=== PATIENT | female | born 1980 | race Caucasian/White ===

== ENCOUNTER 2017-07-22 08:11 | Emergency (ER) | payer BC, OTHER ==
[~2017-07-22 08:11] MED LIST: BCPILLS PO; CYAN1SUB12 PO; FOLI1TAB7 PO; LORA10TA44 PO; PANT1TAB48 PO; PRENTAB26 PO; PRVHFAIN INH; PSEU30TA64 PO; ZNTT/150 PO
[2017-07-22 08:12] VITALS: TEMP 36.9; Ht 177.8 cm
[2017-07-22] MEDS ORDERED: KETOROLAC TROMETHAMINE 60 MG/2 ML VIAL IM STA (08:24)
[2017-07-22] MEDS ORDERED: HYDROmorphone INJ 1 MG/ML SYR IM STA (08:24)
[2017-07-22] MEDS ORDERED: LIDODERM (LIDOCAINE) PATCH 5% TD STA (08:24)
[2017-07-22] MEDS ORDERED: CYCLOBENZAPRINE HCL 10 MG TAB PO STA (08:24)
[2017-07-22] MEDS ORDERED: ONDANSETRON 4MG OD TAB PO STA (08:24)
[2017-07-22] MEDS ORDERED: NAPR-1169 PO (08:43)
[2017-07-22] MEDS ORDERED: MISCCAP80 PO (08:43)
[2017-07-22] MEDS ORDERED: ESCI10TA17 PO (08:43)
--- NOTE | 2017-07-22 09:08 | DIAGNOSTIC IMAGING REPORT ---
PELVIS 1 OR 2 VIEW ROUTINE CLINICAL HISTORY: Pelvic pain COMPARISON STUDY: No previous studies for comparison. FINDINGS: No fractures or dislocations are visualized. The joint space of each hip appears well-preserved for age. There are no erosive or destructive changes. IMPRESSION: Unremarkable bony pelvis Electronically signed by: Amaury Lo M.D. 07/22/2017 9:06 AM Dictated Date/Time: 07/22/2017 9:05 AM
--- NOTE | 2017-07-22 09:08 | DIAGNOSTIC IMAGING REPORT ---
L-SPINE MIN 4 VIEWS ROUTINE CLINICAL HISTORY: Lumbar spine pain COMPARISON STUDY: No previous studies for comparison. FINDINGS: No fractures or subluxations are visualized. The disc space heights appear well-preserved. There are no erosive or destructive changes. IMPRESSION: Unremarkable conventional radiographic evaluation of the lumbar spine. Electronically signed by: Amaury Lo M.D. 07/22/2017 9:07 AM Dictated Date/Time: 07/22/2017 9:06 AM
[2017-07-22] MEDS ORDERED: FLEXERIL HOME PACK 10 MG VIAL PO STA (09:25)
[2017-07-22] MEDS ORDERED: OXYCODONE IR HOME PACK PO STA (09:25)
[2017-07-22] MEDS ORDERED: CYCL10TA6 PO (09:30)
[2017-07-22] MEDS ORDERED: OXYC1TAB3 PO (09:30)
[2017-07-22] MEDS ORDERED: NF656 TD (09:30)
[2017-07-22 09:33] VITALS: BP 120/72; PULSE 71; O2SAT 96
--- NOTE | 2017-07-22 14:26 | EMERGENCY ROOM VISIT NOTE ---
History Report prepared by [employer]: Sanam Hernandez Under the Supervision of: Dr. Robert May M.D. First contact with patient: 08:17 Chief Complaint: BACK PAIN Stated Complaint: BACK PAIN History of Present Illness The patient is a 36 year old female who presents to the Emergency Room with complaints of worsening back pain starting last night. The patient states that she has had back issues for years and has been able to manage it with the chiropractor. She reports that now the pain is radiating down her right leg and making it weak. The patient notes that she took 2 Naproxen 2 hours ago and had 2 Tramadol last night with no relief. She denies losing control of her bowel or bladder, seeing an orthopedic surgeon, being diabetic, and the chance of being . She notes that she has a chiropractor appointment scheduled in four days. Source of History: patient Onset: last night Position: back Quality: other (radiating) Timing: worsening Associated Symptoms: + weakness Note: The patient denies losing control of her bowel or bladder. Review of Systems See HPI for pertinent positives & negatives. A total of 10 systems reviewed and were otherwise negative. Past Medical & Surgical Medical Problems: (1) Back pain Family History No pertinent family history Social History Smoking Status: Never Smoker Marital Status: Housing Status: lives with family Occupation Status: employed Current/Historical Medications Scheduled Albuterol (Ventolin Hfa), 2 PUFFS INH TID Cyanocobalamin (Vitamin B-12), PO DAILY Cyclobenzaprine Hcl (Flexeril), 10 MG PO TID Escitalopram (Lexapro), 0.5 TAB PO DAILY Folic Acid (Folvite), 1 MG PO DAILY Lidocaine (Lidoderm Patch 5%), 1 PATCH TD DAILY Loratadine (Allergy), PO DAILY Naproxen (Naprosyn), 500 MG PO BID Pantoprazole (Protonix), 40 MG PO DAILY Probiotic Product (Probiotic), 1 CAP PO DAILY Scheduled PRN Oxycodone Immediate Rel Tab (Roxicodone Ir), 1-2 TAB PO Q4H PRN for Severe Pain Allergies Coded Allergies: Lactose (Unverified Allergy, Unknown, ABDOMINAL PAIN, 07/18/14) Phenazopyridine (Unverified Allergy, Unknown, UNKNOWN, 07/18/14) Physical Exam Vital Signs Date Time Temp Pulse Resp B/P (MAP) Pulse Ox O2 Delivery O2 Flow Rate FiO2 07/22/17 09:33 71 16 120/72 96 Room Air 07/22/17 08:12 36.9 96 20 128/78 98 Room Air Physical Exam GENERAL: Patient is a healthy-appearing well-nourished HEAD: Normocephalic atraumatic EYES: Ocular movements intact pupils equal and react to light OROPHARYNX mucous membranes are moist no exudates present no erythema or edema present NECK: Supple no nuchal rigidity CHEST: Good equal expansion LUNGS: Clear and equal to auscultation CARDIAC: Normal S1 and S2 ABDOMEN: Soft nontender no guarding BACK: No CVA tenderness. Point tenderness to the right SI joint. EXTREMITIES: No pain upon palpation normal muscle strength in all groups no clubbing cyanosis or edema NEURO: Patient is following commands and answering questions appropriately. Alert and oriented x3 Cranial Nerves 2-12 grossly intact. Able to walk on her tip toes and heels. No loss of bowel or bladder control. No saddle anesthesia on exam. Medical Decision & Procedures ER Provider Diagnostic Interpretation: Radiology results as stated below per my review and radiologist interpretation: PELVIS 1 OR 2 VIEW ROUTINE CLINICAL HISTORY: Pelvic pain COMPARISON STUDY: No previous studies for comparison. FINDINGS: No fractures or dislocations are visualized. The joint space of each hip appears well-preserved for age. There are no erosive or destructive changes. IMPRESSION: Unremarkable bony pelvis Electronically signed by: Amaury Lo M.D. 07/22/2017 9:06 AM Dictated Date/Time: 07/22/2017 9:05 AM L-SPINE MIN 4 VIEWS ROUTINE CLINICAL HISTORY: Lumbar spine pain COMPARISON STUDY: No previous studies for comparison. FINDINGS: No fractures or subluxations are visualized. The disc space heights appear well-preserved. There are no erosive or destructive changes. IMPRESSION: Unremarkable conventional radiographic evaluation of the lumbar spine. Electronically signed by: Amaury Lo M.D. 07/22/2017 9:07 AM Dictated Date/Time: 07/22/2017 9:06 AM Medications Administered Medications (Trade) Dose Ordered Sig/Evans Route Start Time Stop Time Status Last Admin Dose Admin Ketorolac Tromethamine (Toradol Inj) 60 mg NOW STAT IM 07/22/17 08:24 07/22/17 08:26 DC 07/22/17 08:35 60 MG Lidocaine (Lidoderm Patch 5%) 1 patch NOW STAT TD 07/22/17 08:24 07/22/17 08:26 DC 07/22/17 08:36 1 PATCH Hydromorphone HCl (Dilaudid Inj) 1 mg NOW STAT IM 07/22/17 08:24 07/22/17 08:26 DC 07/22/17 08:39 1 MG Cyclobenzaprine HCl (Flexeril Tab) 10 mg NOW STAT PO 07/22/17 08:24 07/22/17 08:26 DC 07/22/17 08:35 10 MG Ondansetron HCl (Zofran Odt) 4 mg ONE STAT PO 07/22/17 08:24 07/22/17 08:26 DC 07/22/17 08:35 4 MG Oxycodone HCl (Roxicodone Immediate Rel 5MG Home Pack) 1 homepack UD STAT PO 07/22/17 09:25 07/22/17 09:27 DC 07/22/17 09:35 1 HOMEPACK Cyclobenzaprine HCl (FLEXERIL 10MG Home Pack) 1 homepack UD STAT PO 07/22/17 09:25 07/22/17 09:27 DC 07/22/17 09:35 1 HOMEPACK ED Course 0821: Past medical records reviewed. The patient was evaluated in room B10. A complete history and physical examination was performed. 0824: Ordered Zofran Odt 4 mg PO, Flexeril Tab 10 mg PO, Dilaudid Inj 1 mg IM, Lidocaine 1 patch TD Toradol Inj 60 mg IM. 0918: Upon reexamination the patient is resting comfortably. I discussed results and treatment plan with the patient. She verbalizes agreement and understanding. The patient is ready for discharge. 0925: Ordered Cyclobenzaprine HCl 1 homepack PO, Oxycodone HCl 1 homepack PO. Medical Decision Etiologies such as musculoskeletal, disc herniation, fracture, aortic disease, metastatic disease, cord compression, discitis, infection, renal colic, gastrointestinal, acute exacerbation of chronic back pain, sciatica, cauda equina, as well as others were entertained. This is a 36-year-old female who presents emergency department complaining of right-sided back pain. The patient is able to walk on her tiptoes and her heels has no loss of bowel or bladder control and has no evidence saddle anesthesia. She was given Toradol Decadron Dilaudid Flexeril in the emergency department repeat examination revealed much improvement the patient's symptoms. The patient's x-rays do not show any evidence of acute fracture dislocation or subluxation. I do believe that the patient is well enough to be discharged home for follow-up with her primary care doctor. Patient was in agreement with the treatment plan. Medication Reconcilliation Current Medication List: was personally reviewed by me Blood Pressure Screening Patient's blood pressure: Normal blood pressure Blood pressure disposition: Did not require urgent referral Impression Primary Impression: Back pain Scribe Attestation The scribe's documentation has been prepared under my direction and personally reviewed by me in its entirety. I confirm that the note above accurately reflects all work, treatment, procedures, and medical decision making performed by me. Departure Information Dispostion Home / Self-Care Prescriptions Oxycodone Immediate Rel Tab (ROXICODONE IR) 5 Mg Tab 1-2 TAB PO Q4H Y for Severe Pain, #14 TAB Prov: Robert May MD 07/22/17 Cyclobenzaprine Hcl (FLEXERIL) 10 Mg Tab 10 MG PO TID, #21 TAB Prov: Robert May MD 07/22/17 Lidocaine (Lidoderm Patch 5%) 1 Ea Tdsy 1 PATCH TD DAILY for 30 Days, #30 PATCH Prov: Robert May MD 07/22/17 Referrals Gunner Gregory M.D. (PCP) Forms HOME CARE DOCUMENTATION FORM, IMPORTANT VISIT INFORMATION Patient Instructions My [facility] Additional Instructions You received narcotic or benzodiazepene medication while in the emergency room today. This is an addictive medication that may cause drowziness as well as constipation. Do not drive, operate heavy machinery, or drink alcohol under the influence of this medication. Take Aleve as directed Take Flexeril as directed Apply Lidoderm patch Take Oxy for breakthrough pain Follow up with DR Dai/ chiropractor's office You have been examined and treated today on an emergency basis only. This is not a substitute for, or an effort to provide, complete comprehensive medical care. It is impossible to recognize and treat all injuries or illnesses in a single emergency department visit. It is therefore important that you follow up closely with Dr Gregory. Call as soon as possible for an appointment. Thank you for your time and consideration. I look forward to speaking with you again soon. Please don't hesitate to call us if you have any questions. Problem Qualifiers Primary Impression: Back pain Back pain location: low back pain Chronicity: acute Back pain laterality: right Sciatica presence: with sciatica Sciatica laterality: sciatica of right side Qualified Codes: M54.41 - Lumbago with sciatica, right side
== END 2017-07-22 09:55 | disposition home or self-care (01) ==
LOC: C.EDB 08:12
DX: M54.9 Dorsalgia, unspecified (principal); Z79.1 Long term (current) use of non-steroidal anti-inflammatories (NSAID)

== ENCOUNTER → 2017-10-15 | Outpatient (CLI) | payer BC ==
[~2017-10-15] MED LIST changes: -BCPILLS PO; +ESCI10TA17 PO; -FOLI1TAB7 PO; +FOLI1TAB8 PO; +MISCCAP80 PO; +NAPR-1169 PO; +NF656 TD; +OXYC1TAB3 PO; +PANT1TAB3 PO; -PANT1TAB48 PO; -PRENTAB26 PO; -PSEU30TA64 PO; -ZNTT/150 PO
== END | disposition home or self-care (01) ==
LOC: C.PAPS 10:40
PROVIDERS: ATTEND Obstetrics & Gynecology
DX: Z01.419 Encounter for gynecological examination (general) (routine) without abnormal findings (principal)

== ENCOUNTER → 2017-10-21 | Outpatient (CLI) | payer BC ==
--- NOTE | 2017-10-21 12:40 | DIAGNOSTIC IMAGING REPORT ---
KUB CLINICAL HISTORY: Bilateral flank pain. FINDINGS: An AP supine abdominal radiograph is correlated with lumbar spine radiographs dated 07/22/2017. There is a nonobstructed abdominal bowel gas pattern noting moderate constipation. No evidence of intraperitoneal free air is seen on this supine image. There are no abnormal abdominal calcifications. The bony structures appear intact. IMPRESSION: Moderate constipation. Electronically signed by: Rasta Guevara M.D. 10/21/2017 12:39 PM Dictated Date/Time: 10/21/2017 12:38 PM
== END | disposition home or self-care (01) ==
LOC: C.RADPV 11:55
PROVIDERS: ATTEND Nurse Practitioner
DX: R10.9 Unspecified abdominal pain (principal)

== ENCOUNTER → 2017-11-12 | Outpatient (CLI) | payer BC ==
--- NOTE | 2017-11-12 14:28 | DIAGNOSTIC IMAGING REPORT ---
R KNEE 1 OR 2 VIEWS ROUTINE HISTORY: 37 years-old Female Right knee painRADRight acute right knee pain status post fall COMPARISON: None available TECHNIQUE: 2 views of the right knee FINDINGS: There is no acute fracture or dislocation identified. No significant degenerative changes, large joint effusion or opaque foreign body. IMPRESSION: No acute fracture. The above report was generated using voice recognition software. It may contain grammatical, syntax or spelling errors. Electronically signed by: Maximus Treviño M.D. 11/12/2017 2:26 PM Dictated Date/Time: 11/12/2017 2:25 PM
== END | disposition home or self-care (01) ==
LOC: C.RADPV 14:08
PROVIDERS: ATTEND Nurse Practitioner
DX: M25.561 Pain in right knee (principal)

== ENCOUNTER → 2017-12-13 | Outpatient (CLI) | payer BC ==
[2017-12-13 13:11] LABS: BLOOD UREA NITROGEN 15 mg/dl (7-18); CALCIUM 8.7 mg/dl (8.5-10.1); CARBON DIOXIDE 28 mmol/L (21-32); CHOLESTEROL 158 mg/dl (0-200); CREATININE 0.79 mg/dl (0.60-1.20); GLUCOSE 87 mg/dl (70-99); SODIUM 138 mmol/L (136-145)
[2017-12-13 13:14] LABS: LDL CHOLESTEROL CALCULATED 97 mg/dl
== END | disposition home or self-care (01) ==
LOC: C.LABBFT 07:47
PROVIDERS: ATTEND Nurse Practitioner
DX: Z13.1 Encounter for screening for diabetes mellitus (principal); Z13.6 Encounter for screening for cardiovascular disorders

== ENCOUNTER 2021-05-01 20:48 | Observation (INO) ==
[2021-05-01] MEDS ORDERED: ONDANSETRON INJ 2 MG/ML 2 ML VIAL IV STA (21:43)
[2021-05-01] MEDS ORDERED: LORazepam 2 MG/4 ML VIAL IV STA (21:43)
[2021-05-01] MEDS ORDERED: SODIUM CHLORIDE 0.9% 1000ML 1,000 ML IV SCH (21:45)
[2021-05-01 21:51] LABS: Basophils # (auto) 0.03 K/uL (0-0.2); Basophils % (auto) 0.3 %; Eosinophils # (auto) 0.01 K/uL (0-0.5); Eosinophils % (auto) 0.1 %; Hemoglobin 15.5 g/dL (12.0-16.0); Lymphocytes # (auto) 1.85 K/uL (1.2-3.4); Lymphocytes % (auto) 18.2 %; Mean Corpuscular Hgb Conc 35.2 g/dL (32-36); Mean Corpuscular Volume 85.1 fL (80-100); Mean Platelet Volume 9.9 fL (7.4-10.4); Monocytes # (auto) 0.61 K/uL (0.11-0.59); Neutrophils # (auto) 7.56 K/uL (1.4-6.5); Neutrophils % (auto) 74.4 %; Platelet Count 201 K/uL (130-400); RDW Coefficient of Variation 13.8 % (11.5-14.5); RDW Standard Deviation 42.4 fL (36.4-46.3); Red Blood Count 5.17 M/uL (4.2-5.4); White Blood Count 10.16 K/uL (4.8-10.8)
[2021-05-01 22:07] LABS: Alanine Aminotransferase 37 U/L (12-78); Albumin Level 4.4 gm/dl (3.4-5.0); Aspartate Aminotransferase 19 U/L (15-37); BUN Creatinine Ratio 19.8 (10-20); Blood Urea Nitrogen 15 mg/dl (7-18); Calcium 9.6 mg/dl (8.5-10.1); Carbon Dioxide 23 mmol/L (21-32); Chloride 108 mmol/L (98-107); Est GFR (African American) 112.9 ml/min; Est GFR (Non-African American) 97.4 ml/min; Glucose 145 mg/dl (70-99); Potassium 3.5 mmol/L (3.5-5.1); Sodium 140 mmol/L (136-145)
[2021-05-01 22:18] LABS: Albumin Globulin Ratio 1.3 (0.9-2); Alkaline Phosphatase 118 U/L (45-117); Bilirubin,Total 0.7 mg/dl (0.2-1); Globulin 3.3 gm/dl (2.5-4.0); Total Protein 7.7 gm/dl (6.4-8.2); Troponin I < 0.015 ng/ml (0-0.045)
[2021-05-01 22:49] LABS: Lyme Ab IgG w/WB Rflx Negative (Negative); Lyme Ab IgM w/WB Rflx Negative (Negative)
[2021-05-02] MEDS ORDERED: ONDANSETRON INJ 2 MG/ML 2 ML VIAL IV STA (00:52)
[2021-05-02 03:26] LABS: Appearance Urine Cloudy (Clear); Bacteria Urine Automated Negative (Negative); Bilirubin Urine Negative (Negative); Blood Urine Negative (Negative); Color Urine Yellow; Epithelial Cell Urine Auto >30 /lpf (0-5); Glucose Urine UA Negative (Negative); Ketones Urine Negative (Negative); Leukocyte Esterase Urine Negative (Negative); Nitrite Urine Negative (Negative); Protein Urine Negative (Negative); Urobilinogen Urine Negative (Negative)
[2021-05-02 03:55] LABS: RBC Urine Automated 0-4 /hpf (0-4)
--- NOTE | 2021-05-02 04:12 | History & Physical Report ---
Date of Service May 02, 2021 Assessment & Plan (1) Intractable vomiting with nausea: Plan: Patient is a 40 year old female with PMHx Anxiety, GERD, Migraines, Breast Cx s/p b/l mastectomy, MTHFR deficiency, and vertigo who presents with worsening dizziness, nausea, and vomiting. Intractable vomiting secondary to Vertigo -Patient with severe vertigo, suspect dislodged otolith as primary cause at this time -Stat reads of CT head, MRA brain, and MRI brain negative for acute pathology -UDS pending -Received 2mg Ativan, 2.5mg Valium, 8mg Zofran, and 1L NSS in the ED -Patient with some nausea at this time, will give 10mg Compazine IV -Zofran and Compazine PRN -LR 100ml/hr -Consider Yan or Deja Cuellar-pike maneuvers when patient's symptoms improve. Anxiety -Continue Lexapro GERD -Continue Omeprazole Hx Migraines -Continue Topiramate Dispo: Med/Surg FEN: NPO, LR 100ml/hr DVT: low risk Code: Full History of Present Illness Chief Complaint: Dizzines and vomiting Primary Care Provider: Gunner Gregory MD Patient is a 40 year old female with PMHx Anxiety, GERD, Migraines, Breast Cx s/p b/l mastectomy, MTHFR deficiency, and vertigo who presents with worsening dizziness, nausea, and vomiting. Patient notes that she had woken up with a L ear ache and states that she does occasionally get this and had actually scheduled for appointment to see her PCP on 05/02/21 about it. She notes that as the day went on at work she started feeling "not right" and noticed worsening dizziness while working at the computer. Upon arriving home patient notes that she was experiencing significant vertigo where the room was spinning and that it cause her to vomit. She notes that since then anytime she moves her head she feels the room spin and either vomits or has the urge to do so. She notes that she has had a history of vertigo in the past and that occasionally head movement techniques such as Epleys would help, but she she attempted it made no improvement. She currently notes that her primary issue is that when she moves her head she again feels the room spin and she becomes nauseous and vomits. She has not eaten anything since the previous afternoon due to her nausea. She denies any fever, chills, SOB, chest pain, abdominal pain, dysuria, hematuria, diarrhea, constipation. Med Hx: Anxiety, GERD, Migraines, Breast Cx s/p b/l mastectomy, MTHFR deficiency Surg Hx: B/L mastectomy, x2, Sinus surgery Soc Hx: Notes 1-2 drinks/week, denies tobacco or illicit drug use Allergies Allergy/AdvReac Type Severity Reaction Status Date / Time phenazopyridine Allergy Unknown Nausea Verified 05/01/21 21:37 gluten AdvReac Abdominal Verified 05/01/21 21:37 pain sick in stomach Home Medications Medication Instructions Recorded Confirmed Type multivitamin 1 tab PO QAM 01/16/19 05/01/21 History cyanocobalamin (vitamin B-12) 2,500 mcg PO QAM tab 03/27/19 05/01/21 History 2,500 mcg tablet loratadine 10 mg tablet 10 mg PO QAM tab 07/16/19 05/01/21 History fluticasone propionate 50 1 spray INTRANASAL DAILY PRN 12/27/19 05/01/21 History mcg/actuation nasal spray,suspension (Flonase Allergy Relief) albuterol sulfate 90 mcg/actuation 2 puff INHALATION Q4H PRN #8.5 g 08/16/20 05/01/21 Rx aerosol inhaler apple cider vinegar 600 mg capsule 600 mg PO TID 08/24/20 05/01/21 History docusate sodium 100 mg tablet 100 mg PO HS 08/24/20 05/01/21 History (Stool Softener) escitalopram oxalate 10 mg tablet 10 mg PO HS 08/24/20 05/01/21 History (Lexapro) escitalopram oxalate 5 mg tablet 5 mg PO HS 08/24/20 05/01/21 History lactobacillus combination no.4 3 3,000 mmu cells PO QAM 08/24/20 05/01/21 History billion cell capsule (Probiotic) folic acid 1 mg tablet 1 mg PO HS #90 tab 10/01/20 05/01/21 Rx omeprazole 20 mg capsule,delayed 20 mg PO QAM #90 cap 12/19/20 05/01/21 Rx release mometasone 50 mcg/actuation nasal 2 spray INTRANASAL DAILY PRN g 12/23/20 05/01/21 History spray (Nasonex) nitroglycerin 2 % transdermal See Rx Instructions .ROUTE BID PRN 02/28/21 05/01/21 History ointment melatonin 10 mg capsule 10 mg PO HS 04/21/21 05/01/21 History topiramate 25 mg tablet 25 mg PO HS #30 tab 04/21/21 05/01/21 Rx Past Med/Surg History Medical History Acute viral bronchiolitis Anxiety Back pain Bee sting allergy Encounter for pre-operative examination GERD (gastroesophageal reflux disease) Hemorrhoids History of basal cell carcinoma History of esophageal reflux Insomnia 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 Migraine MTHFR mutation Vertigo Surgical History H/O bilateral mastectomy (~02/2020) History of anesthesia reaction SLOW TO WAKE UP History of basal cell carcinoma (BCC) excision History of section X 2 History of D&C History of esophagogastroduodenoscopy (EGD) History of right knee surgery History of shoulder surgery LEFT History of sinus surgery History of surgery on right wrist Family History Uncle Family history of diabetes mellitus Grandmother (Maternal) Myocardial infarction Family/Other Uterine cancer COUSIN - uterine ca, type unknown, age unknown Other Ulcerative colitis Denies family history of Ovarian cancer Prostate cancer Breast cancer Colorectal cancer Social History Smoking Status: Never smoker Second Hand Exposure: No; Hx Alcohol Use: Yes Hx Substance Use: No Preferred Language: Albanian Communication Ability: Effective 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: No Beliefs That Will Affect Care: None marital status: Current Living Situation: Family current occupational status: employed 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 Other Information That Helps Us Care for You: No Feels Safe at Home: Yes Safety Concerns: Feels Safe At This Time Dental Care, Regularly: Yes Physical Activity Frequency: 3-4 Times per Week Seatbelt Use: always Assistive Devices: None Review of Systems Review of Systems: All systems reviewed & are unremarkable except as noted in Subjective Physical Exam Constitutional: well developed, well nourished and cooperative Eyes: normal visual ravi by confrontation, PERRL and EOM intact bilaterally ENMT: external ear and nose normal, oropharynx normal Ears: no TM abnormality Neck: trachea midline, no thyromegaly Respiratory: normal respiratory effort, lungs clear to auscultation Cardiovascular: RRR, no murmur, no edema Gastrointestinal (Abdomen): normal bowel sounds, soft, nontender, no hepatosplenomegaly Musculoskeletal: no cyanosis or clubbing, extremities motor strength 5/5 Skin: no rashes, warm and dry Neurologic: moves all extremities Psychiatric: Orientation: alert and oriented x 3 Apperance: + disheveled Eye Contact: + poor eye contact Results & Data Results & Data ([facility]) Vital Signs (Past 12 Hours) Vital Signs Temp Pulse Pulse Resp BP BP Pulse Ox 05/02/21 03:00 62 18 116/81 97 05/02/21 01:30 74 18 129/94 96 05/02/21 00:30 65 14 133/87 98 05/02/21 00:05 68 13 104/84 93 05/02/21 00:04 66 14 104/84 95 05/01/21 21:43 71 18 98 05/01/21 21:21 87 26 H 121/79 98 05/01/21 21:06 36.8 C 102 H 22 98 Supervising Physician Co-Signing Physician Notes Attending addendum: I have physically seen this patient, have supervised the medical residents activities, and agree with the H&P unless as otherwise noted. Assessment and Plan: Intractable vomiting/nausea/dehydration/vertigo- CT head without contrast negative MRI brain and MRA brain without contrast negative Received combinations of IV Ativan, IV Valium, IV Zofran and 1 L normal saline from the ED Give a trial of Compazine 10 mg IV now Continue with IV rehydration LR at 100 mils per hour Repeat laboratories in a.m. No more likely reason for symptoms other than inner ear/otolith dysfunction Anxiety- Continue Lexapro GERD- Continue omeprazole/pantoprazole Remaining orders and notations as noted Resident Activity Tracking Resident Involvement: Resident Care Provided Care Provided: Adult [facility]
[2021-05-02] MEDS ORDERED: PROCHLORPERAZINE 10 MG in SYRINGE 8 ML IV ONE (04:18)
[2021-05-02] MEDS ORDERED: PROCHLORPERAZINE 5 MG/ML 2 ML VIAL ONE (04:23)
[2021-05-02 04:31] LABS: Amphetamines+Metham, Urine Neg (Neg); Barbiturates, Urine Neg (Neg); Benzodiazepine, Urine Neg (Neg); Cocaine, Urine Neg (Neg); MDMA (Ecstacy), Urine Pos (Neg); Methadone, Urine Neg (Neg); Opiate, Urine Neg (Neg); Phencyclidine, Urine Neg (Neg)
[2021-05-02] MEDS ORDERED: POTASSIUM CHLORIDE / WTR 10 MEQ/100 ML PLCT IV STA (04:36)
--- NOTE | 2021-05-02 05:47 | Emergency Department Note ---
History of Present Illness General Chief complaint: Dizziness Stated complaint: DIZZY, WEAK Time Seen by Provider: 05/01/21 21:35 History of Present Illness This is a 40-year-old female presenting to the emergency department for evaluation of nausea, vomiting, and dizziness worsening over the past day. The patient states that she awoke this morning with left ear pain that slowly worsened and began to cause her dizziness. She has had several episodes of emesis over the past few hours, and now presents to the ER for evaluation. She does describe a spinning-like sensation when she opens her eyes. The patient has not taken anything [id number] for her symptoms and has mild improvement of symptoms when she closes her eyes in a dark room. There is a positional component to her symptoms, and movement also causes her to become more nauseated. She has not had recent fevers or chills. The patient had COVID-19 last year and has subsequently been vaccinated. There is a past history of breast cancer. She is not experiencing any difficulty moving arms and legs. She rates her overall current discomfort a 9/10. Home Medications Medication Instructions Recorded Confirmed Type multivitamin 1 tab PO QAM 01/16/19 05/01/21 History cyanocobalamin (vitamin B-12) 2,500 mcg PO QAM tab 03/27/19 05/01/21 History 2,500 mcg tablet loratadine 10 mg tablet 10 mg PO QAM tab 07/16/19 05/01/21 History fluticasone propionate 50 1 spray INTRANASAL DAILY PRN 12/27/19 05/01/21 History mcg/actuation nasal spray,suspension (Flonase Allergy Relief) albuterol sulfate 90 mcg/actuation 2 puff INHALATION Q4H PRN #8.5 g 08/16/20 05/01/21 Rx aerosol inhaler apple cider vinegar 600 mg capsule 600 mg PO TID 08/24/20 05/01/21 History docusate sodium 100 mg tablet 100 mg PO HS 08/24/20 05/01/21 History (Stool Softener) escitalopram oxalate 10 mg tablet 10 mg PO HS 08/24/20 05/01/21 History (Lexapro) escitalopram oxalate 5 mg tablet 5 mg PO HS 08/24/20 05/01/21 History lactobacillus combination no.4 3 3,000 mmu cells PO QAM 08/24/20 05/01/21 History billion cell capsule (Probiotic) folic acid 1 mg tablet 1 mg PO HS #90 tab 10/01/20 05/01/21 Rx omeprazole 20 mg capsule,delayed 20 mg PO QAM #90 cap 12/19/20 05/01/21 Rx release mometasone 50 mcg/actuation nasal 2 spray INTRANASAL DAILY PRN g 12/23/20 05/01/21 History spray (Nasonex) nitroglycerin 2 % transdermal See Rx Instructions .ROUTE BID PRN 02/28/21 05/01/21 History ointment melatonin 10 mg capsule 10 mg PO HS 04/21/21 05/01/21 History topiramate 25 mg tablet 25 mg PO HS #30 tab 04/21/21 05/01/21 Rx Allergies Allergy/AdvReac Type Severity Reaction Status Date / Time phenazopyridine Allergy Unknown Nausea Verified 05/01/21 21:37 gluten AdvReac Abdominal Verified 05/01/21 21:37 pain sick in stomach Past Med/Surg History Medical History Acute viral bronchiolitis Anxiety Back pain Bee sting allergy Encounter for pre-operative examination GERD (gastroesophageal reflux disease) Hemorrhoids History of basal cell carcinoma History of esophageal reflux Insomnia 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 Migraine MTHFR mutation Vertigo Surgical History H/O bilateral mastectomy (~02/2020) History of anesthesia reaction SLOW TO WAKE UP History of basal cell carcinoma (BCC) excision History of section X 2 History of D&C History of esophagogastroduodenoscopy (EGD) History of right knee surgery History of shoulder surgery LEFT History of sinus surgery History of surgery on right wrist Family History Uncle Family history of diabetes mellitus Grandmother (Maternal) Myocardial infarction Family/Other Uterine cancer COUSIN - uterine ca, type unknown, age unknown Other Ulcerative colitis Denies family history of Ovarian cancer Prostate cancer Breast cancer Colorectal cancer Social History Smoking Status: Never smoker Second Hand Exposure: No; Hx Alcohol Use: Yes Hx Substance Use: No Preferred Language: Qatari Communication Ability: Effective 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 Required: No Beliefs That Will Affect Care: None marital status: Current Living Situation: Spouse current occupational status: employed 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 Feels Safe at Home: Yes Dental Care, Regularly: Yes Physical Activity Frequency: 3-4 Times per Week Seatbelt Use: always Assistive Devices: None Review of Systems A total of 10 systems reviewed and were otherwise negative Physical Exam Vital Signs Vital Signs - 24 hr 05/01/21 21:06 05/01/21 21:21 05/01/21 21:43 Temperature 36.8 C Temperature Source Temporal Artery Scan Pulse Rate 102 H 87 71 Pulse Rate [Apical] Pulse Rate from SpO2 Sensor 86 Pulse Rhythm Regular Respiratory Rate 22 26 H 18 Respiratory Effort / Characteristics Non-Labored Blood Pressure 121/79 Blood Pressure [Right Arm] Blood Pressure Mean 93 Blood Pressure Mean [Right Arm] Pulse Oximetry 98 98 98 Oxygen Delivery Method Room Air Room Air Room Air Sepsis Recent Fever Within 48 Hours No Sepsis New/Unexplained Change in Mental Status No Sepsis Action Taken by Nursing No Action Required 05/02/21 00:04 05/02/21 00:05 05/02/21 00:30 Temperature Temperature Source Pulse Rate 66 65 Pulse Rate [Apical] 68 Pulse Rate from SpO2 Sensor 66 64 Pulse Rhythm Respiratory Rate 14 13 14 Respiratory Effort / Characteristics Blood Pressure 104/84 133/87 Blood Pressure [Right Arm] 104/84 Blood Pressure Mean 90 102 Blood Pressure Mean [Right Arm] 90 Pulse Oximetry 95 93 98 Oxygen Delivery Method Room Air Room Air Room Air Sepsis Recent Fever Within 48 Hours Sepsis New/Unexplained Change in Mental Status Sepsis Action Taken by Nursing 05/02/21 01:30 05/02/21 03:00 05/02/21 04:00 Temperature Temperature Source Pulse Rate 62 67 Pulse Rate [Apical] 74 Pulse Rate from SpO2 Sensor 63 70 Pulse Rhythm Respiratory Rate 18 18 12 Respiratory Effort / Characteristics Blood Pressure 116/81 125/100 Blood Pressure [Right Arm] 129/94 Blood Pressure Mean 92 108 Blood Pressure Mean [Right Arm] 105 Pulse Oximetry 96 97 98 Oxygen Delivery Method Room Air Room Air Room Air Sepsis Recent Fever Within 48 Hours Sepsis New/Unexplained Change in Mental Status Sepsis Action Taken by Nursing 05/02/21 05:01 Temperature Temperature Source Pulse Rate 69 Pulse Rate [Apical] Pulse Rate from SpO2 Sensor 74 Pulse Rhythm Respiratory Rate 13 Respiratory Effort / Characteristics Blood Pressure 126/89 Blood Pressure [Right Arm] Blood Pressure Mean 101 Blood Pressure Mean [Right Arm] Pulse Oximetry 96 Oxygen Delivery Method Room Air Sepsis Recent Fever Within 48 Hours Sepsis New/Unexplained Change in Mental Status Sepsis Action Taken by Nursing VITALS: Vitals are noted on the nurse's note and reviewed by myself. Vital signs stable. GENERAL: White female who is laying back in a darkened emergency room. She is diaphoretic and holding an emesis bag. HEAD: Normocephalic atraumatic. EARS: External ear normal. External auditory canals clear, tympanic membranes pearly sewell without erythema or effusion bilaterally. EYES: Unable to be assessed as opening of the eyes causes the patient to dry heave MOUTH: Mucous membranes moist. Tonsils are not enlarged. Pharynx without erythema, blood, or exudate. Uvula midline. Airway patent. NECK: Supple without nuchal rigidity. No lymphadenopathy. No thyromegaly. Cervical spine is nontender. HEART: Regular rate and rhythm without murmurs gallops or rubs. LUNGS: Clear to auscultation bilaterally without wheezes, rales or rhonchi. No retractions or accessory muscle use. ABDOMEN: Positive normal bowel sounds x 4. Soft, nontender, without masses or organomegaly. No guarding or rebound tenderness. MUSCULOSKELETAL: No muscle atrophy, erythema, or edema noted. Full range of motion in all extremities. NEURO: Patient was alert and oriented to person place and time. CN II through X II grossly intact. Course Administered Medications Discontinued Medications Diazepam (Diazepam 5 Mg/Ml Inj 10ml Vial) 2.5 mg IV NOW STA Stop: 05/02/21 00:22 Last Admin: 05/02/21 01:42 Dose: 2.5 mg Documented by: [id number] Sodium Chloride (Nss 1000ml) 1,000 mls @ 999 mls/hr IV .Q1H1M RL Stop: 05/01/21 22:45 Last Infusion: 05/01/21 22:51 Dose: 0 mls/hr Documented by: [id number] Admin: 05/01/21 21:50 Dose: 999 mls/hr Documented by: [id number] Lorazepam (Ativan) 2 mg in 4 mls @ 4 mls/min IV NOW STA Stop: 05/01/21 21:44 Last Admin: 05/01/21 21:50 Dose: 4 mls/min Documented by: [id number] Prochlorperazine 10 mg/ (Syringe) 10 mls @ 5 mls/min IV ONE ONE Stop: 05/02/21 04:19 Last Admin: 05/02/21 05:29 Dose: Not Given Documented by: [id number] Potassium Chloride (K Singh / Wtr) 10 meq in 100 mls @ 100 mls/hr IV Q1H STA Stop: 05/02/21 05:35 Last Admin: 05/02/21 04:50 Dose: 100 mls/hr Documented by: [id number] Ondansetron HCl (Ondansetron Inj 2 Mg/Ml 2 Ml Vial) 4 mg IV NOW STA Stop: 05/01/21 21:44 Last Admin: 05/01/21 21:50 Dose: 4 mg Documented by: [id number] Ondansetron HCl (Ondansetron Inj 2 Mg/Ml 2 Ml Vial) 4 mg IV NOW STA Stop: 05/02/21 00:53 Last Admin: 05/02/21 01:26 Dose: 4 mg Documented by: [id number] Prochlorperazine (Prochlorperazine 5 Mg/Ml 2 Ml Vial) Confirm Administered Dose 10 mg .ROUTE .STK-MED ONE Stop: 05/02/21 04:24 Last Admin: 05/02/21 04:28 Dose: 10 mg Documented by: [id number] Medical Decision Making Differential Diagnosis Differential diagnosis: Etiologies such as benign positional vertigo, labrynthitis, dehydration, hypovolemia, anemia, tumor, infection, hypoglycemia, electrolyte abnormalities, cardiac sources, toxicological sources, central neurologic process, as well as others were entertained. Laboratory Data Result diagrams: 05/01/21 21:20 05/01/21 21:20 Lab Results 05/01/21 05/01/21 05/01/21 Range/Units 21:20 21:20 21:20 WBC 10.16 (4.8-10.8) K/uL RBC 5.17 (4.2-5.4) M/uL Hgb 15.5 (12.0-16.0) g/dL Hct 44.0 (37-47) % MCV 85.1 (80-100) fL MCH 30.0 (25-34) pg MCHC 35.2 (32-36) g/dL RDW Std Deviation 42.4 (36.4-46.3) fL RDW Coeff of Don 13.8 (11.5-14.5) % Plt Count 201 (130-400) K/uL MPV 9.9 (7.4-10.4) fL Immature Gran % (Auto) 1.0 % Neut % (Auto) 74.4 % Lymph % (Auto) 18.2 % [place] % (Auto) 6.0 % Eos % (Auto) 0.1 % Baso % (Auto) 0.3 % Neut # (Auto) 7.56 H (1.4-6.5) K/uL Lymph # (Auto) 1.85 (1.2-3.4) K/uL [place] # (Auto) 0.61 H (0.11-0.59) K/uL Eos # (Auto) 0.01 (0-0.5) K/uL Baso # (Auto) 0.03 (0-0.2) K/uL Immature Gran # (Auto) 0.10 H (0.00-0.02) K/uL Sodium 140 (136-145) mmol/L Potassium 3.5 (3.5-5.1) mmol/L Chloride 108 H (98-107) mmol/L Carbon Dioxide 23 (21-32) mmol/L Anion Gap 8.0 (3-11) BUN 15 (7-18) mg/dl Creatinine 0.76 (0.6-1.2) mg/dl Est Cr Clr Drug Dosing Not Reportable Est GFR ( Amer) 112.9 ml/min Est GFR (Non-Af Amer) 97.4 ml/min BUN/Creatinine Ratio 19.8 (10-20) Glucose 145 H (70-99) mg/dl Calcium 9.6 (8.5-10.1) mg/dl Magnesium 2.0 (1.8-2.4) mg/dl Total Bilirubin 0.7 (0.2-1) mg/dl AST 19 (15-37) U/L ALT 37 (12-78) U/L Alkaline Phosphatase 118 H (45-117) U/L Troponin I < 0.015 (0-0.045) ng/ml Total Protein 7.7 (6.4-8.2) gm/dl Albumin 4.4 (3.4-5.0) gm/dl Globulin 3.3 (2.5-4.0) gm/dl Albumin/Globulin Ratio 1.3 (0.9-2) TSH 1.080 (0.300-4.500) uIu/ml Urine Color Urine Appearance (Clear) Urine pH (4.5-7.5) Ur Specific [place] (1.000-1.030) Urine Protein (Negative) Urine Glucose (UA) (Negative) Urine Ketones (Negative) Urine Blood (Negative) Urine Nitrite (Negative) Urine Bilirubin (Negative) Urine Urobilinogen (Negative) Ur Leukocyte Esterase (Negative) Urine WBC (Auto) (0-5) /hpf Urine RBC (Auto) (0-4) /hpf U Hyaline Cast (Auto) (0-5) /lpf U Epithel Cells (Auto) (0-5) /lpf Urine Bacteria (Auto) (Negative) Ur Renal Epithelial Cell Other Crystals (None Prsent) POC Ur Test (NEG) Urine Opiates Screen (Neg) Ur Methadone, Qual (Neg) Urine Barbiturates (Neg) Ur Phencyclidine (PCP) (Neg) U Amphetamin/Meth Scrn (Neg) MDMA (Ecstasy) Screen (Neg) U Benzodiazepines Scrn (Neg) Ur Cocaine Metabolite (Neg) U Marijuana (THC) Screen (Neg) Lyme Disease IgG Ab Negative (Negative) Lyme Disease IgM Ab Negative (Negative) COVID-19 Eval Order SARS-CoV-2 (PCR) (Negative) 05/02/21 05/02/21 05/02/21 Range/Units 02:59 02:59 02:59 WBC (4.8-10.8) K/uL RBC (4.2-5.4) M/uL Hgb (12.0-16.0) g/dL Hct (37-47) % MCV (80-100) fL MCH (25-34) pg MCHC (32-36) g/dL RDW Std Deviation (36.4-46.3) fL RDW Coeff of Don (11.5-14.5) % Plt Count (130-400) K/uL MPV (7.4-10.4) fL Immature Gran % (Auto) % Neut % (Auto) % Lymph % (Auto) % [place] % (Auto) % Eos % (Auto) % Baso % (Auto) % Neut # (Auto) (1.4-6.5) K/uL Lymph # (Auto) (1.2-3.4) K/uL [place] # (Auto) (0.11-0.59) K/uL Eos # (Auto) (0-0.5) K/uL Baso # (Auto) (0-0.2) K/uL Immature Gran # (Auto) (0.00-0.02) K/uL Sodium (136-145) mmol/L Potassium (3.5-5.1) mmol/L Chloride (98-107) mmol/L Carbon Dioxide (21-32) mmol/L Anion Gap (3-11) BUN (7-18) mg/dl Creatinine (0.6-1.2) mg/dl Est Cr Clr Drug Dosing Est GFR ( Amer) ml/min Est GFR (Non-Af Amer) ml/min BUN/Creatinine Ratio (10-20) Glucose (70-99) mg/dl Calcium (8.5-10.1) mg/dl Magnesium (1.8-2.4) mg/dl Total Bilirubin (0.2-1) mg/dl AST (15-37) U/L ALT (12-78) U/L Alkaline Phosphatase (45-117) U/L Troponin I (0-0.045) ng/ml Total Protein (6.4-8.2) gm/dl Albumin (3.4-5.0) gm/dl Globulin (2.5-4.0) gm/dl Albumin/Globulin Ratio (0.9-2) TSH (0.300-4.500) uIu/ml Urine Color Yellow Urine Appearance Cloudy A (Clear) Urine pH 8.0 H (4.5-7.5) Ur Specific [place] 1.020 (1.000-1.030) Urine Protein Negative (Negative) Urine Glucose (UA) Negative (Negative) Urine Ketones Negative (Negative) Urine Blood Negative (Negative) Urine Nitrite Negative (Negative) Urine Bilirubin Negative (Negative) Urine Urobilinogen Negative (Negative) Ur Leukocyte Esterase Negative (Negative) Urine WBC (Auto) 1-5 (0-5) /hpf Urine RBC (Auto) 0-4 (0-4) /hpf U Hyaline Cast (Auto) 1-5 (0-5) /lpf U Epithel Cells (Auto) >30 H (0-5) /lpf Urine Bacteria (Auto) Negative (Negative) Ur Renal Epithelial Cell Not Reportable Other Crystals [place] (None Prsent) POC Ur Test NEG (NEG) Urine Opiates Screen Neg (Neg) Ur Methadone, Qual Neg (Neg) Urine Barbiturates Neg (Neg) Ur Phencyclidine (PCP) Neg (Neg) U Amphetamin/Meth Scrn Neg (Neg) MDMA (Ecstasy) Screen Pos H (Neg) U Benzodiazepines Scrn Neg (Neg) Ur Cocaine Metabolite Neg (Neg) U Marijuana (THC) Screen Neg (Neg) Lyme Disease IgG Ab (Negative) Lyme Disease IgM Ab (Negative) COVID-19 Eval Order SARS-CoV-2 (PCR) (Negative) 05/02/21 05/02/21 Range/Units 03:07 03:07 WBC (4.8-10.8) K/uL RBC (4.2-5.4) M/uL Hgb (12.0-16.0) g/dL Hct (37-47) % MCV (80-100) fL MCH (25-34) pg MCHC (32-36) g/dL RDW Std Deviation (36.4-46.3) fL RDW Coeff of Don (11.5-14.5) % Plt Count (130-400) K/uL MPV (7.4-10.4) fL Immature Gran % (Auto) % Neut % (Auto) % Lymph % (Auto) % [place] % (Auto) % Eos % (Auto) % Baso % (Auto) % Neut # (Auto) (1.4-6.5) K/uL Lymph # (Auto) (1.2-3.4) K/uL [place] # (Auto) (0.11-0.59) K/uL Eos # (Auto) (0-0.5) K/uL Baso # (Auto) (0-0.2) K/uL Immature Gran # (Auto) (0.00-0.02) K/uL Sodium (136-145) mmol/L Potassium (3.5-5.1) mmol/L Chloride (98-107) mmol/L Carbon Dioxide (21-32) mmol/L Anion Gap (3-11) BUN (7-18) mg/dl Creatinine (0.6-1.2) mg/dl Est Cr Clr Drug Dosing Est GFR ( Amer) ml/min Est GFR (Non-Af Amer) ml/min BUN/Creatinine Ratio (10-20) Glucose (70-99) mg/dl Calcium (8.5-10.1) mg/dl Magnesium (1.8-2.4) mg/dl Total Bilirubin (0.2-1) mg/dl AST (15-37) U/L ALT (12-78) U/L Alkaline Phosphatase (45-117) U/L Troponin I (0-0.045) ng/ml Total Protein (6.4-8.2) gm/dl Albumin (3.4-5.0) gm/dl Globulin (2.5-4.0) gm/dl Albumin/Globulin Ratio (0.9-2) TSH (0.300-4.500) uIu/ml Urine Color Urine Appearance (Clear) Urine pH (4.5-7.5) Ur Specific [place] (1.000-1.030) Urine Protein (Negative) Urine Glucose (UA) (Negative) Urine Ketones (Negative) Urine Blood (Negative) Urine Nitrite (Negative) Urine Bilirubin (Negative) Urine Urobilinogen (Negative) Ur Leukocyte Esterase (Negative) Urine WBC (Auto) (0-5) /hpf Urine RBC (Auto) (0-4) /hpf U Hyaline Cast (Auto) (0-5) /lpf U Epithel Cells (Auto) (0-5) /lpf Urine Bacteria (Auto) (Negative) Ur Renal Epithelial Cell Other Crystals (None Prsent) POC Ur Test (NEG) Urine Opiates Screen (Neg) Ur Methadone, Qual (Neg) Urine Barbiturates (Neg) Ur Phencyclidine (PCP) (Neg) U Amphetamin/Meth Scrn (Neg) MDMA (Ecstasy) Screen (Neg) U Benzodiazepines Scrn (Neg) Ur Cocaine Metabolite (Neg) U Marijuana (THC) Screen (Neg) Lyme Disease IgG Ab (Negative) Lyme Disease IgM Ab (Negative) COVID-19 Eval Order Covid19 at [facility] SARS-CoV-2 (PCR) NEGATIVE (Negative) Imaging Data Radiologist's Impression: Preliminary Findings Only See Final Report For Complete Findings CT HEAD: No ICH, mass effect or edema. No evidence of acute cortical stroke. Visualized sinuses and mastoid air cells are clear. Radiologist: Jaosn Beebe M.D. Preliminary Findings Only See Final Report For Complete Findings MRI HEAD : Impression: Negative exam. No acute infarct or intracranial hemorrhage. No substantial parenchymal signal abnormality. No mastoid or middle ear effusion. Partial empty sella. MRA HEAD : No evidence of vascular occlusion, significant stenosis, or aneurysm. Radiologist: Victor Hugo Frankel MD ECG Data Attestation: I personally reviewed and interpreted this ECG as follows: Indication: + other (Dizzy) Additional Comments: Normal sinus rhythm @[address] elevation Normal ECG When compared with ECG of 27-FEB-2021 22:29, No significant change was found MDM Narrative Physical exam and history were performed. Nursing notes, EMR, and Medication List were personally reviewed. Patient appears to have severe dizziness and vomiting symptoms bringing her to the emergency department. Exam is somewhat difficult as the patient appears unwell and any movement or opening of the eyes seems to exacerbate her symptoms. IV access was established and labs were obtained. She was hydrated with normal saline and given IV Ativan and IV Zofran. The patient was sent to CT scan for further evaluation. An order was placed for continuous cardiac monitoring. The monitor shows a rate of 69 with normal sinus rhythm. The patient's blood work is as above and was reviewed. She does not have a significantly elevated white blood cell count, gross anemia, bandemia, or significant electrolyte imbalance. Transaminases are not diagnostic. Urine is without evidence of infection. CT scan of the head was reviewed by myself and radiology showing no acute process. Case was discussed with my attending, Dr. Alfaro, who remained involved in patient care and decision-making. On reevaluation the patient continues to have a large amount of nausea and continues with dizziness. She is able to open her eyes after the Ativan, however she does have a horizontal nystagmus, and when opening both of her eyes gets very dizzy and return of intense nausea. I discussed options of care with the patient and did give her additional Zofran and some Valium. She was sent to MRI for further imaging. MRI/MRA was reviewed and also is without significant acute findings. The patient is unable to get out of bed to even use the bathroom at this point. She has had some mild improvement with medication, but continues to appear unwell. The patient does not seem well for discharge home. Case was discussed with the on-call hospitalist team who agreed to evaluate the patient here in the ER. Please see their dictation for further patient course, plan, and disposition. The chart was completed utilizing [employer] Speech Voice Recognition Software. Grammatical errors, random word insertions, pronoun errors, and incomplete sentences are an occasional consequence of this system due to software limitations, ambient noise, and hardware issues. Any formal questions or concerns about the content, text, or information contained within the body of this dictation should be directly addressed to the provider for clarification. . Impression & Plan Dizziness, Intractable vomiting Discharge Plan Visit Data Chief Complaint: Dizziness Stated Complaint: DIZZY, WEAK ED Provider: Farrukh Alfaro ED Midlevel Provider: German Ortiz Discharge Problem: Dizziness, Intractable vomiting Discharge Instructions Interventions: ED Discharge Assessment Last Done: 05/02/21 05:39 Forms Stand Alone Forms: [facility] [employer] Prescriptions Prescriptions: No Action albuterol sulfate 90 mcg/actuation HFA aerosol inhaler 2 puff inhalation Q4H PRN (Reason: shortness of breath or wheezing) Qty: 8.5 RF: 1 folic acid 1 mg tablet 1 mg PO HS Qty: 90 RF: 3 omeprazole 20 mg capsule,delayed release(DR/EC) 20 mg PO QAM Qty: 90 RF: 3 cyanocobalamin (vitamin B-12) 2,500 mcg tablet 2,500 mcg PO QAM RF: 0 mometasone [Nasonex] 50 mcg/actuation spray,non-aerosol 2 spray INTRANASAL DAILY PRN (Reason: Congestion) RF: 0 loratadine 10 mg tablet 10 mg PO QAM RF: 0 melatonin 10 mg capsule 10 mg PO HS RF: 0 topiramate 25 mg tablet 25 mg PO HS Qty: 30 RF: 1 multivitamin Tablet 1 tab PO QAM RF: 0 fluticasone propionate [Flonase Allergy Relief] 50 mcg/actuation spray,suspension 1 spray INTRANASAL DAILY PRN (Reason: Congestion) RF: 0 apple cider vinegar 600 mg Capsule 600 mg PO TID RF: 0 docusate sodium [Stool Softener] 100 mg Tablet 100 mg PO HS RF: 0 Probiotic 3 billion cell Capsule 3,000 mmu cells PO QAM RF: 0 escitalopram oxalate [Lexapro] 10 mg tablet 10 mg PO HS RF: 0 escitalopram oxalate 5 mg tablet 5 mg PO HS RF: 0 nitroglycerin 2 % ointment See Rx Instructions .ROUTE BID PRN (Reason: hemorridal pain) RF: 0 Referrals Referrals: Gunner Gregory III, MD [Primary Care Provider] -
[2021-05-02] MEDS ORDERED: ALBUTEROL HFA 8 GM INHALER INH PRN (06:06)
[2021-05-02] MEDS ORDERED: PROCHLORPERAZINE 10 MG in SYRINGE 8 ML IV PRN (06:06)
[2021-05-02] MEDS ORDERED: ONDANSETRON INJ 2 MG/ML 2 ML VIAL IV PRN (06:06)
[2021-05-02] MEDS: LACTATED RINGER'S 1,000 ML IV SCH ×3 (06:16→23:35)
--- NOTE | 2021-05-02 07:04 | Magnetic Resonance Report ---
Brain MRA HISTORY: Headache. Vomiting. vertigo symptoms TECHNIQUE: 3-D [id number] MRA of the brain was performed without contrast. COMPARISON STUDY: None. FINDINGS: Visualized intracranial internal carotid arteries, distal vertebral arteries, and basilar a rtery are widely patent. There is no significant stenosis, occlusion, or aneurysm seen within the [place] a[place] ACAs, MCAs, or lumber sorter machine. IMPRESSION: No significant stenosis, occlusion, or aneurysm within the [place]. ACT 112: Negative or not required by law. Electronically signed by: Peterson Naranjo M.D. 05/02/2021 7:03 AM
--- NOTE | 2021-05-02 07:11 | CT Scan Report ---
CT SCAN OF THE BRAIN WITHOUT IV CONTRAST CLINICAL HISTORY: Vertigo. COMPARISON STUDY: No priors. TECHNIQUE: Unenhanced axial CT scan of the brain is performed from the vertex to the skull base. A d ose lowering technique was utilized adhering to the principles of ALARA. CT DOSE: 537.48 mGy.cm FINDINGS: Brain parenchyma: The brain parenchyma is normal in appearance. There is no hemorrhage, mass effect, or evidence of acute territorial ischemia by CT criteria. Reyes-white matter differentiation is preser iliana. No extra-axial fluid collection is seen. Ventricles, sulci, cisterns: Normal in configuration. Intracranial vasculature: The visualized intracranial vasculature at the skull base is normal in appe arance. Calvarium: Unremarkable. Sinuses and mastoids: The visualized paranasal sinuses are clear. The mastoid air cells are well pneu matized. Orbits: The bony orbits are grossly intact. IMPRESSION: There is no hemorrhage, mass effect, or evidence of acute territorial ischemia by CT crit rula. ACT 112: Negative or not required by law. Electronically signed by: Rasta Guevara M.D. 05/02/2021 7:10 AM
[2021-05-02 07:30] LABS: Basophils # (auto) 0.03 K/uL (0-0.2); Basophils % (auto) 0.4 %; Eosinophils # (auto) 0.01 K/uL (0-0.5); Eosinophils % (auto) 0.1 %; Hematocrit (blood only) 42.6 % (37-47); Hemoglobin 14.5 g/dL (12.0-16.0); Immature Granulocytes # (auto) 0.04 K/uL (0.00-0.02); Immature Granulocytes % (auto) 0.5 %; Lymphocytes # (auto) 1.08 K/uL (1.2-3.4); Lymphocytes % (auto) 12.8 %; Mean Corpuscular Hemoglobin 29.3 pg (25-34); Mean Corpuscular Volume 86.1 fL (80-100); Mean Platelet Volume 9.6 fL (7.4-10.4); Monocytes # (auto) 0.38 K/uL (0.11-0.59); Monocytes % (auto) 4.5 %; Neutrophils # (auto) 6.89 K/uL (1.4-6.5); Neutrophils % (auto) 81.7 %; Platelet Count 165 K/uL (130-400); RDW Coefficient of Variation 13.9 % (11.5-14.5); RDW Standard Deviation 42.9 fL (36.4-46.3); Red Blood Count 4.95 M/uL (4.2-5.4); White Blood Count 8.43 K/uL (4.8-10.8)
[2021-05-02 07:57] LABS: BUN Creatinine Ratio 18.4 (10-20); Calcium 9.2 mg/dl (8.5-10.1); Creatinine Clr Calc Pharmacy 122.9 ml/min; Est GFR (African American) 131.2 ml/min; Est GFR (Non-African American) 113.2 ml/min; Potassium 3.9 mmol/L (3.5-5.1)
--- NOTE | 2021-05-02 08:18 | Magnetic Resonance Report ---
MRI OF THE BRAIN WITHOUT CONTRAST CLINICAL HISTORY: vertigo symptoms COMPARISON STUDY: May 02, 2021 at 12:51 hours FINDINGS: Sagittal T1, axial diffusion, proton density and T2 weighted axial, coronal FLAIR, and axial T1-weigh javier images were acquired. No intra or extra-axial mass lesions are visualized. 5 mm area of high T2 FLAIR and T1 signal is seen adjacent to the falx and could represent fat. Axial diffusion-weighted images reveal no evidence of acute or subacute infarction. There is no evidence of ventricular dilatation. Proton density T2-weighted and FLAIR images reveal no significant abnormalities. There are no abnormal flow voids. IMPRESSION: No acute intracranial hemorrhage, no midline shift or space occupying lesions. No evidence of restricted diffusion to suggest acute ischemia/infarct. Focal area of fat signal within falx most likely representing benign fatty lesion. ACT 112: Negative or not required by law. The above report was generated using voice recognition software. It may contain grammatical, syntax o r spelling errors. Electronically signed by: Kristan Stratton DO 05/02/2021 8:17 AM
[2021-05-02] MEDS: PANTOprazole 40 MG TAB PO SCH (09:20)
[2021-05-02] MEDS ORDERED: KETOROLAC TROMETHAMINE 15 MG/ML VIAL IV ONE (15:13)
[2021-05-02] MEDS ORDERED: SUMAtriptan succinate 6 MG/0.5 ML VIAL SQ STA (15:15)
--- NOTE | 2021-05-02 17:44 | History & Physical Bridge Note ---
Date of Service May 02, 2021 History & Physical Bridge Note I have examined the patient, reviewed the History & Physical and in the interval since the performance of the History & Physical I have noted the following changes of clinical significance: Ms. Watt was admitted this morning for intractable nausea, vomiting, and vertigo. Reports nausea was resolved while laying still but had a spinning sensation when sitting up. Assisted her to the bathroom. She is steady on her feet but barely can keep her eyes open. She has intermittent pain around the L ear. No tenderness by pulling on the pinna, palpating the mastoid, or the temporal region. Pain is not reproducible and not consistent with temporal arteritis. No vision loss just light sensitivity. Scans do not reveal a thrombus as she does have MTHFR deficiency. She reports she has had silent migraines and is on Topamax. REVIEW OF SYSTEMS General/Constitutional: + mild headache/more towards L ear; Denies fever/chills ENT: Denies visual changes, nasal drainage, hearing loss, sore throat Cardiovascular: Denies chest pain, palpitations, edema Respiratory: Denies cough, sputum, SOB, wheezing GI: + nausea with movement, + small emesis today; Denies abdominal pain, constipation, diarrhea, melena/hematochezia : Denies dysuria Musculoskeletal: +; Denies joint/muscle aches Neurologic: + "room spinning" Skin: Denies rash, itch, new skin changes, easy bruising PHYSICAL EXAM General Appearance: WDWN in NAD who is A&O x 3 but laying down with eyes closed HEENT: Head is normocephalic/atraumatic; EOMI; PERRLA; +nystagmus; Hearing grossly intact; Mucous membranes moist; Pharynx negative for exudate/lesions Neck: Supple; Trachea midline; Neg JVD Heart: RRR with no M/G/R Lungs: CTA in all lung ravi bilaterally; Respirations unlabored; Neg accessory muscle use Abdomen: Soft, non-tender, non-distended; Positive BS x 4 quadrants Extremities: Capillary refill < 2 seconds; Neg cyanosis or edema Neurological: Speech clear; Gross motor/sensory function intact; Neg focal neurologic deficits Psychiatric: Appropriate mood/affect Skin: Normal Color; Warm/Dry; Neg rashes, ecchymosis, lacerations/ulcerations Possibly this is more migraine headache related as this is more severe then previous vertigo episodes 1. Imitrex 6 mg IM x 1 and may repeat dose in one hour for ongoing symptoms 2. Toradol 15 mg IV PRN 3. Anti-emetics 4. Continue IVF 5. Pending symptom improvement in AM likely discharge home tomorrow
[2021-05-02] MEDS ORDERED: SUMAtriptan succinate 6 MG/0.5 ML VIAL SQ PRN (17:45)
[2021-05-02] MEDS: ESCITALOPRAM OXALATE 10 MG TAB PO SCH (20:16)
[2021-05-02] MEDS: TOPIRAMATE 25 MG TAB PO SCH (20:17)
[2021-05-02] MEDS ORDERED: NON-FORMULARY MEDICATION (Escitalopram Oxalate 5 mg tablet) PO SCH (21:00)
--- NOTE | 2021-05-03 02:51 | Billing Data ---
Date of Service May 03, 2021 Coding Level of Care Code INT OBSERVATION CARE 70M LVL 3
[2021-05-03] MEDS: KETOROLAC TROMETHAMINE 15 MG/ML VIAL IV PRN ×3 (03:20→17:58)
--- NOTE | 2021-05-03 06:29 | Electrocardiogram Report ---
Test Reason : Blood Pressure : / mmHG Vent. Rate : 081 BPM Atrial Rate : 081 BPM P-R Int : 172 ms QRS Dur : 096 ms QT Int : 398 ms P-R-T Axes : 047 014 033 degrees QTc Int : 462 ms Normal sinus rhythm Normal ECG When compared with ECG of 27-FEB-2021 22:29, No significant change was found Confirmed by Trey Edwards ([id number]) on 05/03/2021 6:29:27 AM Referred By: REFERRED SELF Confirmed By:Trey Edwards
[2021-05-03] MEDS: LACTATED RINGER'S 1,000 ML IV SCH ×3 (07:48→23:34)
[2021-05-03] MEDS: PANTOprazole 40 MG TAB PO SCH (08:02)
[2021-05-03] MEDS: AMOXICILLIN/CLAVULANATE 875 MG TAB PO SCH ×2 (11:19→17:57)
--- NOTE | 2021-05-03 16:34 | Hospitalist Progress Note ---
Date of Service May 03, 2021 Assessment & Plan (1) Dizziness: Plan: Patient is a 40 year old female with PMHx Anxiety, GERD, Migraines, Breast Cx s/p b/l mastectomy, MTHFR deficiency, and vertigo who presents with worsening dizziness, nausea, and vomiting. Vertigo: - Migraine vs Inner Ear vs BPPV - Most prevalent with moving her head and does have nystagmus with eye movements - too much nausea to attempt [place] Cuellar [place] or [place] right now - Head imaging without explanation for symptoms - UDS - + ecstacy but suspect this is due to her Escitalopram causing false positive - Anti-emetics and NSAIDs; States meclizine causes significant - Continue IVF (2) Migraine: Plan: - Possibly this is migraine associated as Toradol and Imitrex seem to have assisted with symptoms - Maybe the beginnings of a inner ear infection - will start Augmentin BID and monitor response - Continue Topiramate Plan: - Allow to rest today; NSAIDs and anti-emetics - Possible D/C tomorrow pending on symptoms Admission and Anticipated Discharge Date Admission Date: May 02, 2021 Subjective Reports feeling a bit better day. Able to open eyes more but still with dizziness with turning her head which worsens the nausea. Imitrex seems to help. Able to tolerate a diet. Review of Systems Review of Systems: REVIEW OF SYSTEMS General/Constitutional: Denies fever/chills ENT: + light sensitivity, +intermittent L ear pain; Denies visual changes, nasal drainage, hearing loss, sore throat, trouble swallowing Cardiovascular: Denies chest pain, palpitations, edema Respiratory: Denies cough, sputum, SOB, wheezing, orthopnea GI: + nausea with moving head; Denies vomiting, abdominal pain, constipation, diarrhea : Denies dysuria, frequency, hematuria Musculoskeletal: Denies joint/muscle aches, weakness, swelling Neurologic: + dizziness with head turning Skin: Denies rash, itch Physical Exam Physical Exam: PHYSICAL EXAM General Appearance: WDWN in NAD who is A&O x 3; able to open eyes more today as a bit less sensitive to light HEENT: Head is normocephalic/atraumatic; EOMI; PERRLA; Hearing grossly intact; +nystagmus most obvious with looking to the R and upward gaze; R ear canal unremarkable with pearly sewell TM without bulging of the TM or fluid behind; L ear canal unremarkable, pearly sewell TM without fluid behind, some mild erythema behind the TM at the 12 o'clock region Neck: Supple; Trachea midline Heart: RRR with no M/G/R Lungs: CTA in all lung ravi bilaterally; Respirations unlabored; Neg accessory muscle use Abdomen: Soft, non-tender, non-distended; Positive BS x 4 quadrants; Neg organomegaly Extremities: Capillary refill < 2 seconds; Neg cyanosis or edema Neurological: Speech clear; Gross motor/sensory function intact; Neg focal neurologic deficits Psychiatric: Appropriate mood/affect Skin: Normal Color; Warm/Dry; Neg rashes, ecchymosis, lacerations/ulcerations Results & Data Results & Data ([facility]) Vital Signs (Past 12 Hours) Vital Signs Temp Pulse Pulse Resp BP Pulse Ox 05/03/21 14:59 37.0 C 63 16 118/83 96 05/03/21 12:31 36.1 C L 62 14 136/70 96 05/03/21 08:02 37.1 C 70 14 126/83 100 PG Care Time/CCT Total # of Minutes Spent Total Time Spent with Patient: Total time spent is greater than 50% in coordination of care (as documented) at patient's floor/unit and/or counseling patient: Coding Level of Care Code 54417 Subseq Hosp Care Lvl 2 Diagnoses Dizziness R42 Migraine G43.909
[2021-05-03] MEDS: ESCITALOPRAM OXALATE 10 MG TAB PO SCH (20:46)
[2021-05-03] MEDS: TOPIRAMATE 25 MG TAB PO SCH (20:46)
[2021-05-04] MEDS: KETOROLAC TROMETHAMINE 15 MG/ML VIAL IV PRN ×2 (00:04→07:34)
[2021-05-04] MEDS ORDERED: SUMAtriptan succinate 6 MG/0.5 ML VIAL SQ STA (05:56)
[2021-05-04] MEDS: LACTATED RINGER'S 1,000 ML IV SCH (07:32)
[2021-05-04] MEDS: AMOXICILLIN/CLAVULANATE 875 MG TAB PO SCH ×2 (08:44→18:04)
[2021-05-04] MEDS: PANTOprazole 40 MG TAB PO SCH (08:44)
--- NOTE | 2021-05-04 10:29 | Hospitalist Progress Note ---
Date of Service May 04, 2021 Assessment & Plan (1) Dizziness: Plan: Patient is a 40 year old female with PMHx Anxiety, GERD, Migraines, Breast Cx s/p b/l mastectomy, MTHFR deficiency, and vertigo who presents with worsening dizziness, nausea, and vomiting. Vertigo: - Migraine vs Inner Ear vs BPPV -- No temporal swelling or pain or concerns to temporal arteritis; no hearing loss or H/O [place] - Most prevalent with moving her head and does have nystagmus with eye movements - seems less today and more obvious with R facing gaze and upward gaze - Less nausea today so attempt [place] Cuellar [place] or [place] - PT order placed - Head imaging without explanation for symptoms - UDS - + ecstacy but suspect this is due to her Escitalopram causing false positive - Anti-emetics and NSAIDs; States meclizine causes significant drowsiness for her - Continue IVF (2) Migraine: Plan: - Possibly this is migraine associated as Toradol and Imitrex seem to have assisted with symptoms -- Will RL Toradol and Tylenol through today - gets good relief with Toradol - Maybe the beginnings of a inner ear infection - will start Augmentin BID and monitor response -- Report some pressure feeling of ear - maybe some Eustachian tube dysfunction? She does get allergies - if ongoing issues maybe ENT as outpatient would be beneficial - Continue Topiramate Plan: - Consider Rx for Imitrex PRN - Possible D/C later today if feeling better vs tomorrow Admission and Anticipated Discharge Date Admission Date: May 03, 2021 Subjective Feeling Review of Systems Review of Systems: REVIEW OF SYSTEMS General/Constitutional: Denies fever/chills ENT: + light sensitivity (nearly resolved), +intermittent L ear pain - more pressure-like (improving); Denies visual changes, nasal drainage, hearing loss, sore throat, trouble swallowing Cardiovascular: Denies chest pain, palpitations, edema Respiratory: Denies cough, sputum, SOB, wheezing, orthopnea GI: + nausea with moving head; Denies vomiting, abdominal pain, constipation, diarrhea : Denies dysuria, frequency, hematuria Musculoskeletal: Denies joint/muscle aches, weakness, swelling Neurologic: + dizziness with head turning (improving) Skin: Denies rash, itch Physical Exam Physical Exam: PHYSICAL EXAM General Appearance: WDWN in NAD who is A&O x 3; able to open eyes consistently with less light sensitivity HEENT: Head is normocephalic/atraumatic; EOMI; PERRLA; Hearing grossly intact; +nystagmus most obvious with looking to the R and upward gaze; R ear canal unremarkable with pearly sewell TM without bulging of the TM or fluid behind; L ear canal unremarkable, pearly sewell TM without fluid behind, some mild erythema behind the TM at the 12 o'clock region Neck: Supple; Trachea midline Heart: RRR with no M/G/R Lungs: CTA in all lung ravi bilaterally; Respirations unlabored; Neg accessory muscle use Abdomen: Soft, non-tender, non-distended; Positive BS x 4 quadrants; Neg organomegaly Extremities: Capillary refill < 2 seconds; Neg cyanosis or edema Neurological: Speech clear; Gross motor/sensory function intact; Neg focal neurologic deficits Psychiatric: Appropriate mood/affect Skin: Normal Color; Warm/Dry; Neg rashes, ecchymosis, lacerations/ulcerations Results & Data Results & Data ([facility]) Vital Signs (Past 12 Hours) Vital Signs Temp Pulse Pulse Resp BP Pulse Ox 05/04/21 07:46 36.7 C 62 12 120/80 97 05/03/21 22:51 36.9 C 62 16 113/76 98 PG Care Time/CCT Total # of Minutes Spent Total Time Spent with Patient: Total time spent is greater than 50% in coordination of care (as documented) at patient's floor/unit and/or counseling patient: Coding Level of Care Code 28779 Subseq Hosp Care Lvl 2 Diagnoses Dizziness R42 Migraine G43.909
[2021-05-04] MEDS: ACETAMINOPHEN 500 MG TAB PO SCH ×2 (11:47→19:35)
[2021-05-04] MEDS: KETOROLAC TROMETHAMINE 15 MG/ML VIAL IV SCH ×2 (13:17→18:04)
[2021-05-04] MEDS: TOPIRAMATE 25 MG TAB PO SCH (21:10)
[2021-05-04] MEDS: ESCITALOPRAM OXALATE 10 MG TAB PO SCH (21:11)
[2021-05-04] MEDS ORDERED: MELATONIN 3 MG TAB PO PRN (21:53)
[2021-05-04] MEDS ORDERED: bisacodyL 5 MG TABEC PO ONE ×2 (21:53→22:11)
[2021-05-04] MEDS ORDERED: MELATONIN 3 MG TAB PO ONE (22:10)
[2021-05-05] MEDS: KETOROLAC TROMETHAMINE 15 MG/ML VIAL IV SCH ×3 (01:34→12:06)
[2021-05-05] MEDS: ACETAMINOPHEN 500 MG TAB PO SCH ×2 (04:58→12:06)
[2021-05-05] MEDS: PANTOprazole 40 MG TAB PO SCH (08:20)
[2021-05-05] MEDS: AMOXICILLIN/CLAVULANATE 875 MG TAB PO SCH (08:20)
[2021-05-05] MEDS ORDERED: PSEUDOEPHEDRINE HCL 30 MG TAB PO PRN (08:36)
[2021-05-05 10:07] LABS: MDA negative; MDEA negative; MDMA (Ecstasy) Urine, Confirm negative
[2021-05-05] MEDS ORDERED: GADOBUTROL 10ML VIAL IV ONE (14:50)
--- NOTE | 2021-05-05 15:47 | Magnetic Resonance Report ---
MRI OF THE BRAIN COMBO CLINICAL HISTORY: Dizziness. Headache. Reported history of breast cancer. COMPARISON STUDY: MRI of the brain dated 05/02/2021. TECHNIQUE: MRI of the brain was performed utilizing various T1 and T2-weighted sequences in the axial , sagittal, and coronal planes. Contrast-enhanced sequences were acquired following the administratio n of 8.5 cc of Gadavist. FINDINGS: Brain parenchyma: The brain parenchyma is normal in appearance. There is no hemorrhage or mass effect . There is no restricted diffusion to suggest acute ischemia. No enhancing mass lesion is identified on the postcontrast images. Reyes-white matter differentiation is preserved. No extra-axial fluid danny ection is seen. The cerebellar tonsils are normal in configuration. Ventricles, sulci, and cisterns: Normal in configuration. Pituitary and sella: Unremarkable. Intracranial vasculature: Normal flow voids are maintained at the skull base. Orbits: The bony orbits are grossly intact. Orbital contents are normal in appearance. Sinuses and mastoids: Clear. Calvarium: Unremarkable. Cervical cord: Partially visualized cervical spinal cord is normal in morphology and signal intensity . IMPRESSION: No acute intracranial abnormality. ACT 112: Negative or not required by law. Electronically signed by: Rasta Guevara M.D. 05/05/2021 3:46 PM
--- NOTE | 2021-05-05 16:03 | Discharge Summary ---
Date of Service May 05, 2021 Admission HPI Per Admitting Provider Patient is a 40 year old female with PMHx Anxiety, GERD, Migraines, Breast Cx s/p b/l mastectomy, MTHFR deficiency, and vertigo who presents with worsening dizziness, nausea, and vomiting. Patient notes that she had woken up with a L ear ache and states that she does occasionally get this and had actually scheduled for appointment to see her PCP on 05/02/21 about it. She notes that as the day went on at work she started feeling "not right" and noticed worsening dizziness while working at the computer. Upon arriving home patient notes that she was experiencing significant vertigo where the room was spinning and that it cause her to vomit. She notes that since then anytime she moves her head she feels the room spin and either vomits or has the urge to do so. She notes that she has had a history of vertigo in the past and that occasionally head movement techniques such as Epleys would help, but she she attempted it made no improvement. She currently notes that her primary issue is that when she moves her head she again feels the room spin and she becomes nauseous and vomits. She has not eaten anything since the previous afternoon due to her nausea. She denies any fever, chills, SOB, chest pain, abdominal pain, dysuria, hematuria, diarrhea, constipation. Med Hx: Anxiety, GERD, Migraines, Breast Cx s/p b/l mastectomy, MTHFR deficiency Surg Hx: B/L mastectomy, x2, Sinus surgery Soc Hx: Notes 1-2 drinks/week, denies tobacco or illicit drug use Principal Diagnosis Vertigo, nausea/vomiting, migraine Discharge Exam Constitutional WD/WN, vitals as above Eyes PERRL, conjunctivae normal, anicteric sclerae EOM intact bilaterally and + nystagmus (With rightward gaze); no anisocoria ENMT external ear and nose normal, oropharynx normal Neck trachea midline, no thyromegaly Respiratory normal respiratory effort, lungs clear to auscultation Cardiovascular RRR, no murmur, no edema Chest (Breasts) Chest: normal inspection of chest Gastrointestinal (Abdomen) normal bowel sounds, soft, nontender, no hepatosplenomegaly Musculoskeletal Extremities: extremities normal to inspection; no cyanosis and no clubbing Skin no rashes, warm and dry Neurologic PERRL, EOMI, accommodation nl, no face palsy, no dysarthria CN's II-XI intact bilaterally, moves all extremities and awake; no focal motor deficits Speech / Cognition: normal speech Motor/Sensory: no tremor Psychiatric A+Ox3, euthymic affect Lymphatic no lymphedema Discharge Data Allergies Allergy/AdvReac Type Severity Reaction Status Date / Time phenazopyridine Allergy Unknown Nausea Verified 05/01/21 21:37 gluten AdvReac Abdominal Verified 05/01/21 21:37 pain sick in stomach Consultations 05/02/21 03:36 ED Decision to Admit Stat Ordered Studies 05/01/21 21:43 CT head/brain wo con Urgent 05/02/21 00:18 MR brain wo con Stat 05/02/21 00:20 MR angio head wo con Stat 05/05/21 13:20 MR brain wo/w con Urgent Hospital Course (1) Dizziness: Patient is a 40 year old female with PMHx Anxiety, GERD, Migraines, Breast Cx s/p b/l mastectomy, MTHFR deficiency, and vertigo who presents with worsening dizziness, nausea, and vomiting. Vertigo: - Migraine versus labyrinthitis no associated hearing loss or H/O Mnire's disease -MRI of the brain without contrast performed initially as well as MRA of the head-both negative Given her history of breast cancer, repeated MRI of the brain with contrast to rule out metastases on 05/05-this was also negative MR angiogram of the neck was not performed, but do not think it needs to be at this point - UDS - + ecstasy but suspect this is due to her Escitalopram causing false positive - Anti-emetics and NSAIDs; States meclizine causes significant drowsiness for her, but might help with dizziness-prescribed on discharge She also received IV fluids, Toradol which really helped for her migraine -We will increase Topamax to 50 mg at bedtime to help treat and prevent in case this is migraine related Would avoid triptans with vertiginous migraine-recommend follow-up with neurology as an outpatient -Continue Augmentin x7-day course as well as decongestants for sinus pressure/possible acute sinusitis Restart home Flonase She was tolerating regular diet and ambulating independently at the time of discharge [place] maneuver performed by physical therapist only helped minimally as per patient, but she will continue these exercises at home Stable for discharge to home (2) Migraine: As above, continue ibuprofen as needed, but discontinue home Excedrin which may be causing rebound headaches Increase Topamax to 50 mg at bedtime Follow-up with neurology as an outpatient May be increasing in severity related to 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 Disposition-stable for discharged home Total Time Total Time Spent Total Time Spent (In Minutes): 45 minutes Discharge Plan Discharge Items Patient Disposition: Home - Self-Care Reason For Visit: INTRACTABLE VOMITING Discharge Diagnosis: Migraine with vertigo Condition on Discharge: Fair Activity: As commented below Lifting: Gradually increase as tolerated Bathing: No limitations Exercise/Sports: Gradually increase as tolerated Driving/Machine Use: No driving until vertigo resolved Non-emergency contact: Primary Care Provider Call non-emergency contact if: you have any medication questions and your symptoms worsen Follow-up/Referrals: Jarvis Agosto MD [Physician] - (Please call to schedule an appointment for follow up on your migraines.) Gunner Gregory III, MD [Primary Care Provider] - 05/15/21 2:00 pm (Keith RUIZ) Diet: Regular Addtl Attending Provider Instructions: You were admitted with vertigo an vomiting that may be related to a migraine headache. Your topiramate was increased to 50mg at bedtime-this may help prevent future migraines. You can continue to sparingly take ibuprofen as needed for headache, and meclizine as needed for vertigo. Do not take the Excedrin anymore as this can cause rebound headaches. It may be beneficial for you to be seen by a Neurologist for your migraines, as well as an ENT surgeon for your sinus and ear issues. Please follow up with your PCP within 1-2 weeks. Pending Studies at Discharge: No Stand-Alone Forms: My [facility] ProntoForms, Smoking Cessation Medications and DC Order Prescriptions: New pseudoephedrine HCl [Suphedrine] 30 mg Tablet 60 mg PO Q6H PRN (Reason: nasal congestion) Qty: 10 RF: 0 amoxicillin-pot clavulanate [Augmentin] 875-125 mg Tablet 1 tab PO BIDM Qty: 12 RF: 0 topiramate 50 mg Tablet 50 mg PO HS Qty: 30 RF: 0 meclizine 25 mg tablet 25 mg PO TID PRN (Reason: dizziness) Qty: 10 RF: 0 ibuprofen 200 mg tablet 600 mg PO Q8H PRN (Reason: pain) Qty: 30 RF: 0 Continued albuterol sulfate 90 mcg/actuation HFA aerosol inhaler 2 puff inhalation Q4H PRN (Reason: shortness of breath or wheezing) Qty: 8.5 RF: 1 folic acid 1 mg tablet 1 mg PO HS Qty: 90 RF: 3 omeprazole 20 mg capsule,delayed release(DR/EC) 20 mg PO QAM Qty: 90 RF: 3 cyanocobalamin (vitamin B-12) 2,500 mcg tablet 2,500 mcg PO QAM RF: 0 loratadine 10 mg tablet 10 mg PO QAM RF: 0 melatonin 10 mg capsule 10 mg PO HS RF: 0 multivitamin Tablet 1 tab PO QAM RF: 0 fluticasone propionate [Flonase Allergy Relief] 50 mcg/actuation spray,suspension 1 spray INTRANASAL DAILY PRN (Reason: Congestion) RF: 0 apple cider vinegar 600 mg Capsule 600 mg PO TID RF: 0 docusate sodium [Stool Softener] 100 mg Tablet 100 mg PO HS RF: 0 Probiotic 3 billion cell Capsule 3,000 mmu cells PO QAM RF: 0 escitalopram oxalate [Lexapro] 10 mg tablet 10 mg PO HS RF: 0 escitalopram oxalate 5 mg tablet 5 mg PO HS RF: 0 nitroglycerin 2 % ointment See Rx Instructions .ROUTE BID PRN (Reason: hemorridal pain) RF: 0 Discontinued mometasone [Nasonex] 50 mcg/actuation spray,non-aerosol 2 spray INTRANASAL DAILY PRN (Reason: Congestion) RF: 0 topiramate 25 mg tablet 25 mg PO HS Qty: 30 RF: 1 Discharge Orders: Discharge Order (Routine); Ordered 05/05/21 Ordered By: Shantal Gonzalez/Other Patient Handouts: Preventing Deep Vein Thrombosis Admission Data Admit Date/Time: 05/03/21 16:34 Attending Provider: Shantal Swann Admit Provider: Davi Holley Primary Care Provider: Gunner Gregory III Other Providers: Cory Arellano Other Interventions: Discharge Summary Assessment (RN) Last Done: 05/05/21 16:05 Coding Level of Care Code D/C DAY MANAGEMENT >30 MINS Diagnoses Dizziness R42 Migraine G43.909
[2021-05-05] MEDS ORDERED: TOPIRAMATE 50 MG TAB PO SCH (21:00)
== END 2021-05-05 17:07 | disposition home or self-care (01) | DRG 149 ==
LOC: ED 20:48 → 3N 20:48 → SUATTDRO 05-02 04:39 → 3N 05-02 05:39 → SUATTDRO 05-03 16:34